=== PATIENT | female | born 1955 | race Hispanic/Latino ===

== ENCOUNTER 2018-07-25 15:39 | Emergency (ER) | payer SELFPAY ==
[2018-07-25] MEDS ORDERED: SODIUM CHLORIDE 0.9% 1000ML 1,000 ML IV ONE (16:14)
[2018-07-25] MEDS ORDERED: INSULIN HUMULIN R 100 UNIT/ML 3ML ONE (16:15)
[2018-07-25 16:28] LABS: BASOPHILS % (AUTO) 0.3 % (0.0-5.0); EOSINOPHILS % (AUTO) 1.1 % (0.0-8.0); HEMATOCRIT 37.2 % (36-48); LYMPHOCYTES % (AUTO) 24.7 % (21.0-51.0); MEAN CORPUSCULAR HEMOGLOBIN 29.7 pg (27.0-33.0); MEAN CORPUSCULAR HGB CONC 34.7 g/dL (32.0-36.0); MEAN CORPUSCULAR VOLUME 85.6 fL (79-99); MONOCYTES % (AUTO) 6.8 % (3.0-13.0); NEUTROPHILS % (AUTO) 67.1 % (40.0-77.0); PLATELET COUNT (AUTO) 395 K/uL (130-400); RED BLOOD CELL COUNT(AUTO) 4.35 MIL/uL (4.00-5.50); RED CELL DISTRIBUTION WIDTH 12.2 % (11.0-15.5); WHITE BLOOD COUNT (AUTO) 5.2 K/uL (4.8-10.8)
[2018-07-25 16:39] LABS: INR 0.91 (0.85-1.15); PARTIAL THROMBOPLASTIN TIME 27.8 SEC (26.3-35.5); PROTHROMBIN TIME 9.6 SEC (9.6-11.6)
[2018-07-25 16:50] LABS: ALBUMIN 3.3 g/dL (3.5-5.0); BILIRUBIN,TOTAL 0.3 mg/dL (0.2-1.0); CREATININE 0.7 mg/dL (0.5-1.5); TOTAL PROTEIN, SERUM 8.1 g/dL (6.0-8.3)
[2018-07-25 17:11] LABS: B-TYPE NATRIURETIC PEPTIDE 22 pg/mL (0-100)
[2018-07-25 17:15] LABS: APPEARANCE,URINE Clear (CLEAR); BILIRUBIN,URINE Negative (NEGATIVE); COLOR,URINE Yellow (YELLOW); GLUCOSE, URINE (UA) >=1000 mg/dL (NEGATIVE); KETONES,URINE 15 mg/dL (NEGATIVE); LEUKOCYTE ESTERASE ,URINE Negative (NEGATIVE); NITRATE,URINE Negative (NEGATIVE); OCCULT BLOOD,URINE Negative (NEGATIVE); PH,URINE 5.5 (5.0-8.0); PROTEIN,URINE Negative (NEGATIVE); UROBILINOGEN,URINE 0.2 mg/dL (0.2-1.0)
== END 2018-07-25 18:14 | disposition home or self-care (01) ==
LOC: EDH 15:39
DX: E11.65 Type 2 diabetes mellitus with hyperglycemia (principal); R53.1 Weakness; Z79.4 Long term (current) use of insulin
CPT/HCPCS: 36415; 71045; 80053; 81003; 82550; 82948 ×2; 83874; 83880; 84484; 85025; 85610; 85730; 93005; 96361; 96374; 99284; J1815; J7030

== ENCOUNTER 2020-04-11 23:50 | Emergency (ER) | payer MEDICAID ==
[2020-04-12 00:21] LABS: BILIRUBIN,URINE Negative (NEGATIVE); COLOR,URINE Yellow (YELLOW); GLUCOSE, URINE (UA) Negative (NEGATIVE); KETONES,URINE Negative (NEGATIVE); LEUKOCYTE ESTERASE ,URINE Moderate (NEGATIVE); NITRATE,URINE Negative (NEGATIVE); OCCULT BLOOD,URINE Moderate (NEGATIVE); PH,URINE 7.5 (5.0-8.0); PROTEIN,URINE 300 mg/dL (NEGATIVE)
[2020-04-12 00:24] LABS: APPEARANCE,URINE CLEAR (CLEAR)
[2020-04-12 00:24] LABS: BASOPHILS % (AUTO) 0.4 % (0.0-5.0); EOSINOPHILS % (AUTO) 2.8 % (0.0-8.0); LYMPHOCYTES % (AUTO) 32.2 % (21.0-51.0); MEAN CORPUSCULAR HEMOGLOBIN 30.2 pg (27.0-33.0); MEAN CORPUSCULAR HGB CONC 33.8 g/dL (32.0-36.0); MEAN CORPUSCULAR VOLUME 89.2 fL (79-99); MONOCYTES % (AUTO) 7.5 % (3.0-13.0); NEUTROPHILS % (AUTO) 56.8 % (40.0-77.0); PLATELET COUNT (AUTO) 334 K/uL (130-400); RED BLOOD CELL COUNT(AUTO) 3.25 MIL/uL (4.00-5.50); RED CELL DISTRIBUTION WIDTH 12.6 % (11.0-15.5); WHITE BLOOD COUNT (AUTO) 7.2 K/uL (4.8-10.8)
[2020-04-12 00:31] LABS: CREATININE 1.2 mg/dL (0.5-1.5); POTASSIUM 4.4 mmol/L (3.5-5.1)
[2020-04-12 00:33] LABS: BACTERIA,URINE Moderate /HPF (None Seen)
[2020-04-12 00:34] LABS: RENAL EPITHELIAL CELLS,URINE Few /HPF (None Seen)
== END 2020-04-12 01:07 | disposition home or self-care (01) ==
LOC: EDH 23:50
DX: T83.098A Other mechanical complication of other urinary catheter, initial encounter (principal); E11.9 Type 2 diabetes mellitus without complications; Z98.890 Other specified postprocedural states; Y73.8 Miscellaneous gastroenterology and urology devices associated with adverse incidents, not elsewhere classified; Y92.89 Other specified places as the place of occurrence of the external cause
CPT/HCPCS: 36415; 80048; 81001; 85025; 87077; 87088; 87186

== ENCOUNTER 2021-08-09 22:18 | Observation (INO) | payer OTHER, MEDICARE ==
[~2021-08-09] VITALS: Ht 154.9 cm; Wt 57.6 kg
[2021-08-09] MEDS ORDERED: HYDROCODONE/ACETAMINOPHEN 10/325 MG TAB PO ONE (22:30)
[2021-08-09 22:47] LABS: BASOPHILS % (AUTO) 0.5 % (0.0-5.0); EOSINOPHILS % (AUTO) 2.6 % (0.0-8.0); HEMATOCRIT 27.6 % (36-48); LYMPHOCYTES % (AUTO) 22.1 % (21.0-51.0); MEAN CORPUSCULAR HEMOGLOBIN 29.4 pg (27.0-33.0); MEAN CORPUSCULAR HGB CONC 32.6 g/dL (32.0-36.0); MEAN CORPUSCULAR VOLUME 90.2 fL (79-99); MONOCYTES % (AUTO) 8.7 % (3.0-13.0); NEUTROPHILS % (AUTO) 65.8 % (40.0-77.0); PLATELET COUNT (AUTO) 303 K/uL (130-400); RED BLOOD CELL COUNT(AUTO) 3.06 MIL/uL (4.00-5.50); RED CELL DISTRIBUTION WIDTH 12.5 % (11.0-15.5); WHITE BLOOD COUNT (AUTO) 7.3 K/uL (4.8-10.8)
[2021-08-09] MEDS ORDERED: HYDROCODONE/ACETAMINOPHEN 10/325 MG TAB ONE (22:52)
[2021-08-09 23:02] LABS: CREATININE 1.4 mg/dL (0.5-1.5); POTASSIUM 3.7 mmol/L (3.5-5.1)
[2021-08-09 23:07] LABS: ALBUMIN 2.8 g/dL (3.5-5.0); BILIRUBIN,TOTAL 0.1 mg/dL (0.2-1.0); TOTAL PROTEIN, SERUM 7.6 g/dL (6.0-8.3)
[2021-08-09 23:15] LABS: B-TYPE NATRIURETIC PEPTIDE 45 pg/mL (0-100)
[2021-08-10] MEDS ORDERED: IOHEXOL 350 MG/ML 100ML INFUS..BTL IV ONE (00:16)
[2021-08-10] MEDS ORDERED: KETOROLAC 30MG VIAL (30MG/ML) IV ONE (02:30)
[2021-08-10] MEDS ORDERED: CLINDAMYCIN IVPB 900MG/50ML 50 ML IV ONE (02:30)
[2021-08-10] MEDS ORDERED: ACETAMINOPHEN 325 MG TAB PO PRN (03:30)
[2021-08-10] MEDS ORDERED: MORPHINE 2 MG SYG IV PRN (03:30)
[2021-08-10] MEDS ORDERED: VANCOMYCIN PROTOCOL PER PHARMACY IV PRN (03:30)
[2021-08-10] MEDS ORDERED: ASPIRIN 81MG CHEW TAB PO ONE (03:30)
[2021-08-10] MEDS ORDERED: MORPHINE 4 MG SYG IV PRN (03:30)
[2021-08-10] MEDS ORDERED: NITROGLYCERIN 0.4 MG SL TAB SL PRN (03:30)
[2021-08-10] MEDS ORDERED: VANCOMYCIN 1G/250ML KIT 250 ML IV ONE (04:00)
[2021-08-10] MEDS: INSULIN HUMULIN R 100 UNIT/ML 3ML SQ SCH ×4 (07:30→20:18)
[2021-08-10] MEDS: ZOSYN 3.375GM+NS 50ML 50 ML IV SCH ×2 (07:59→12:40)
[2021-08-10] MEDS: ASPIRIN 81MG CHEW TAB PO SCH (08:41)
[2021-08-10] MEDS: HEPARIN 5,000 UNIT VIAL SQ SCH ×3 (08:42→20:19)
[2021-08-10] MEDS ORDERED: FAMOTIDINE 20MG TAB PO SCH (09:00)
[2021-08-10] MEDS ORDERED: 0.9%NACL 50ML 50 ML IV ONE (12:33)
[2021-08-10] MEDS ORDERED: PHARMACY COMMUNICATION MISC SCH (16:00)
[2021-08-10] MEDS ORDERED: INVANZ 1GM+NS 50ML IVPB 50 ML IV SCH (17:00)
[2021-08-10 18:50] VITALS: BP 160/83
[2021-08-10 20:30] VITALS: BP 171/83
[2021-08-10] MEDS ORDERED: VANCOMYCIN 1G/250ML KIT 250 ML IV SCH (21:00)
[2021-08-10] MEDS ORDERED: INSULIN GLARGINE 100 UNITS/ML 10 ML VIAL SQ SCH (21:00)
[2021-08-10 21:40] VITALS: BP 157/59
[2021-08-10] MEDS ORDERED: AEC81 PO (22:51)
[2021-08-10] MEDS ORDERED: TICA90TA PO (22:51)
[2021-08-10] MEDS ORDERED: GEMF600T89 PO (22:51)
[2021-08-10] MEDS ORDERED: CARV3.1262 PO (22:51)
[2021-08-10] MEDS ORDERED: LOSA25TA41 PO (22:51)
[2021-08-10] MEDS ORDERED: PRAV20TA4 PO (22:51)
[2021-08-10] MEDS ORDERED: METF-446 PO (23:36)
[2021-08-10] MEDS ORDERED: INSU100I35 SQ (23:36)
[2021-08-10 23:38] VITALS: BP 161/83
[2021-08-11 04:00] VITALS: BP 146/70
[2021-08-11 05:14] LABS: BASOPHILS % (AUTO) 0.4 % (0.0-5.0); EOSINOPHILS % (AUTO) 1.3 % (0.0-8.0); HEMATOCRIT 25.5 % (36-48); LYMPHOCYTES % (AUTO) 12.7 % (21.0-51.0); MEAN CORPUSCULAR HEMOGLOBIN 29.2 pg (27.0-33.0); MEAN CORPUSCULAR HGB CONC 32.9 g/dL (32.0-36.0); MEAN CORPUSCULAR VOLUME 88.5 fL (79-99); MONOCYTES % (AUTO) 5.5 % (3.0-13.0); NEUTROPHILS % (AUTO) 79.8 % (40.0-77.0); PLATELET COUNT (AUTO) 291 K/uL (130-400); RED BLOOD CELL COUNT(AUTO) 2.88 MIL/uL (4.00-5.50); WHITE BLOOD COUNT (AUTO) 6.8 K/uL (4.8-10.8)
[2021-08-11 05:29] LABS: CREATININE 1.2 mg/dL (0.5-1.5); MAGNESIUM 1.9 mg/dL (1.80-2.40); PHOSPHORUS 4.3 mg/dL (2.5-4.9); POTASSIUM 3.9 mmol/L (3.5-5.1)
[2021-08-11] MEDS: INSULIN HUMULIN R 100 UNIT/ML 3ML SQ SCH ×2 (05:58→11:30)
[2021-08-11 08:00] VITALS: BP 155/88
[2021-08-11] MEDS ORDERED: CARVEDILOL 3.125 MG TABLET PO SCH (09:15)
[2021-08-11] MEDS ORDERED: GEMFIBROZIL 600 MG TABLET PO SCH (09:15)
[2021-08-11] MEDS ORDERED: ATORVASTATIN 10 MG TABLET PO SCH (09:15)
[2021-08-11] MEDS ORDERED: LOSARTAN 25 MG TABLET PO SCH (09:15)
[2021-08-11] MEDS ORDERED: TICAGRELOR 90 MG TABLET PO SCH (09:15)
[2021-08-11] MEDS ORDERED: PANTOPRAZOLE 40 MG TAB DR PO SCH (09:30)
[2021-08-11] MEDS: ASPIRIN 81MG CHEW TAB PO SCH (10:06)
[2021-08-11] MEDS: HEPARIN 5,000 UNIT VIAL SQ SCH (10:13)
[2021-08-11 12:00] VITALS: BP 144/72
[2021-08-11 16:00] VITALS: BP 150/70
== END 2021-08-11 16:00 | disposition home or self-care (01) ==
LOC: EDH 22:18 → INTOOBSV 08-10 03:02 → EDHIP 08-10 03:02 → 4DH 08-10 18:50
PROVIDERS: ADMIT Internal Medicine; ATTEND Internal Medicine
DX: L03.113 Cellulitis of right upper limb (principal); Z20.822 Contact with and (suspected) exposure to COVID-19; N39.0 Urinary tract infection, site not specified; D68.59 Other primary thrombophilia; I80.8 Phlebitis and thrombophlebitis of other sites; I12.9 Hypertensive chronic kidney disease with stage 1 through stage 4 chronic kidney disease, or unspecified chronic kidney disease; E11.22 Type 2 diabetes mellitus with diabetic chronic kidney disease; N18.9 Chronic kidney disease, unspecified; D63.1 Anemia in chronic kidney disease; R07.89 Other chest pain; E11.65 Type 2 diabetes mellitus with hyperglycemia; E78.5 Hyperlipidemia, unspecified; Z83.3 Family history of diabetes mellitus; Z87.440 Personal history of urinary (tract) infections; Z79.01 Long term (current) use of anticoagulants; Z79.899 Other long term (current) drug therapy
CPT/HCPCS: 36415 ×3; 71045; 71275; 80048; 80053; 82948 ×7; 83036; 83735; 83880; 84100; 84145; 84484 ×4; 85025 ×2; 85378; 85651; 86140; 87040 ×2; 87635; 93971; 96365; 96366; 96367; 96372 ×2; 96375; 99285; C9803; G0378; J1335; J1644 ×4; J1815; J1885; J2543 ×2; J3370 ×2; J3490; Q9967

== ENCOUNTER 2023-03-09 08:58 | Emergency (ER) | payer OTHER, MEDICARE ==
[~2023-03-09] VITALS: Ht 149.9 cm; Wt 57.6 kg
[~2023-03-09 08:58] MED LIST: AEC81 PO; CARV3.1262 PO; GEMF600T89 PO; INSU100I35 SQ; LOSA25TA41 PO; METF-446 PO; PRAV20TA4 PO; TICA90TA PO
[2023-03-09 09:34] LABS: BASOPHILS # (AUTO) 0.03 K/uL (0.00-0.20); BASOPHILS % (AUTO) 0.3 % (0.0-5.0); EOSINOPHILS # (AUTO) 0.11 K/uL (0.00-0.70); EOSINOPHILS % (AUTO) 1.2 % (0.0-8.0); HEMATOCRIT 32.3 % (36-48); IMMATURE GRANULOCYTE ABSOLUTE 0.04 K/uL (0-1); LYMPHOCYTES # (AUTO) 1.6 K/uL (1.0-4.8); LYMPHOCYTES % (AUTO) 16.9 % (21.0-51.0); MEAN CORPUSCULAR HEMOGLOBIN 29.6 pg (27.0-33.0); MEAN CORPUSCULAR HGB CONC 33.4 g/dL (32.0-36.0); MEAN CORPUSCULAR VOLUME 88.5 fL (79-99); MONOCYTES # (AUTO) 0.9 K/uL (0.1-1.0); MONOCYTES % (AUTO) 9.1 % (3.0-13.0); NEUTROPHILS # (AUTO) 6.8 K/uL (1.8-7.7); NEUTROPHILS % (AUTO) 72.1 % (40.0-77.0); PLATELET COUNT (AUTO) 258 K/uL (130-400); RED BLOOD CELL COUNT(AUTO) 3.65 MIL/uL (4.00-5.50); RED CELL DISTRIBUTION WIDTH 12.6 % (11.0-15.5); WHITE BLOOD COUNT (AUTO) 9.4 K/uL (4.8-10.8)
[2023-03-09 09:44] LABS: CREATININE 1.5 mg/dL (0.5-1.5); POTASSIUM 3.9 mmol/L (3.5-5.1)
[2023-03-09 09:49] LABS: ALBUMIN 3.2 g/dL (3.5-5.0); BILIRUBIN,TOTAL 0.5 mg/dL (0.2-1.0); TOTAL PROTEIN, SERUM 8.5 g/dL (6.0-8.3)
[2023-03-09 10:00] LABS: APPEARANCE,URINE TURBID (CLEAR); BILIRUBIN,URINE NEGATIVE (NEGATIVE); COLOR,URINE YELLOW (YELLOW); GLUCOSE, URINE (UA) >=1000 mg/dL (NEGATIVE); KETONES,URINE 5 mg/dL (NEGATIVE); LEUKOCYTE ESTERASE ,URINE MODERATE Leu/uL (NEGATIVE); NITRATE,URINE NEGATIVE (NEGATIVE); OCCULT BLOOD,URINE SMALL (NEGATIVE); PROTEIN,URINE 100 mg/dL (NEGATIVE); UROBILINOGEN,URINE 0.2 mg/dL (0.2-1.0)
[2023-03-09 10:07] LABS: SARS-CoV-2, RNA, NAAT NEGATIVE SARS CoV-2 (NEGATIVE)
[2023-03-09 10:11] LABS: INFLUENZA TYPE A Negative For Type A (NEGATIVE); INFLUENZA TYPE B Negative For Type B (NEGATIVE)
[2023-03-09 10:19] LABS: ADD UA MICROSCOPIC YES
[2023-03-09] MEDS ORDERED: CEFTRIAXONE 1G VIAL IVPB ONE (10:30)
[2023-03-09] MEDS ORDERED: LEVOFLOXACIN 500 MG/D5W 100 ML 100 ML IV ONE (10:30)
[2023-03-09] MEDS ORDERED: 0.9% NACL 500ML IV.SOLN 500 ML IV ONE (10:30)
[2023-03-09] MEDS ORDERED: ONDA-104 PO (10:31)
[2023-03-09] MEDS ORDERED: NITR100C PO (10:31)
[2023-03-09 10:33] LABS: BACTERIA,URINE Many /HPF (None Seen); RBC,URINE 0-1 /HPF (0-1); SQUAMOUS EPITHELIAL CELL,UR Rare /HPF (0-2); WBC,URINE >100 /HPF (0-1)
[2023-03-09] MEDS ORDERED: ONDANSETRON 4MG INJ IVP ONE (11:00)
[2023-03-09 13:00] VITALS: BP 142/61; PULSE 85; RESP 17; O2SAT 98
[2023-03-10] MEDS ORDERED: LEVOFLOXACIN 250 MG/D5W 50ML 50 ML IVPB SCH (11:00)
== END 2023-03-09 13:06 | disposition home or self-care (01) ==
LOC: EDH 08:58
DX: N39.0 Urinary tract infection, site not specified (principal); E86.0 Dehydration; R11.0 Nausea; I10 Essential (primary) hypertension; E11.9 Type 2 diabetes mellitus without complications; E78.00 Pure hypercholesterolemia, unspecified; Z20.822 Contact with and (suspected) exposure to COVID-19; Z79.82 Long term (current) use of aspirin; Z79.84 Long term (current) use of oral hypoglycemic drugs; Z79.899 Other long term (current) drug therapy
CPT/HCPCS: 99284; 96365; 87635; 96375; 84484; 80053; 85025; 87077; 87088; 87186; 87804 ×2; 81001; 36415; 93005; C9803; J1956; J2405

== ENCOUNTER 2023-03-12 13:25 | Emergency (ER) | payer OTHER, MEDICARE ==
[~2023-03-12] VITALS: Ht 160 cm; Wt 57.6 kg
[~2023-03-12 13:25] MED LIST changes: +NITR100C PO; +ONDA-104 PO
[2023-03-12 14:30] VITALS: BP 133/67; PULSE 83; RESP 16; O2SAT 99
[2023-03-12] MEDS ORDERED: ORPHENADRINE CITRATE 30 MG/ML ML IM STA (15:03)
[2023-03-12] MEDS ORDERED: TRIAMCINOLONE ACETONIDE 40 MG/ML 1ML VIAL IM STA (15:03)
[2023-03-12] MEDS ORDERED: METH-662 PO (15:55)
== END 2023-03-12 16:10 | disposition home or self-care (01) ==
LOC: EDH 13:25
DX: S46.812A Strain of other muscles, fascia and tendons at shoulder and upper arm level, left arm, initial encounter (principal); I10 Essential (primary) hypertension; E11.59 Type 2 diabetes mellitus with other circulatory complications; E78.00 Pure hypercholesterolemia, unspecified; Z79.82 Long term (current) use of aspirin; Z79.84 Long term (current) use of oral hypoglycemic drugs; Z79.899 Other long term (current) drug therapy; Z87.440 Personal history of urinary (tract) infections; Z98.890 Other specified postprocedural states; Z88.1 Allergy status to other antibiotic agents; X58.XXXA Exposure to other specified factors, initial encounter; Y93.89 Activity, other specified; Y92.89 Other specified places as the place of occurrence of the external cause; Y99.8 Other external cause status
CPT/HCPCS: 99284; 73030; 96372 ×2; 93005; J3301; J2360

== ENCOUNTER 2024-03-16 14:16 | Emergency (ER) | payer OTHER, MEDICARE ==
[~2024-03-16] VITALS: Ht 165.1 cm; Wt 72.6 kg
[~2024-03-16 14:16] MED LIST changes: +METH-662 PO; +ONDA-243 PO
[2024-03-16 14:45] LABS: BASOPHILS # (AUTO) 0.05 K/uL (0.00-0.20); BASOPHILS % (AUTO) 0.4 % (0.0-5.0); EOSINOPHILS % (AUTO) 2.6 % (0.0-8.0); HEMATOCRIT 30.7 % (36-48); IMMATURE GRANULOCYTE ABSOLUTE 0.05 K/uL (0-1); LYMPHOCYTES # (AUTO) 1.4 K/uL (1.0-4.8); LYMPHOCYTES % (AUTO) 11.9 % (21.0-51.0); MEAN CORPUSCULAR HGB CONC 32.2 g/dL (32.0-36.0); MONOCYTES # (AUTO) 0.9 K/uL (0.1-1.0); MONOCYTES % (AUTO) 7.6 % (3.0-13.0); NEUTROPHILS % (AUTO) 77.1 % (40.0-77.0); PLATELET COUNT (AUTO) 358 K/uL (130-400); RED CELL DISTRIBUTION WIDTH 13.3 % (11.0-15.5); WHITE BLOOD COUNT (AUTO) 11.6 K/uL (4.8-10.8)
[2024-03-16 14:52] LABS: APPEARANCE,URINE CLOUDY (CLEAR); BILIRUBIN,URINE NEGATIVE (NEGATIVE); COLOR,URINE LIGHT-YELLOW (YELLOW); GLUCOSE, URINE (UA) >=1000 mg/dL (NEGATIVE); KETONES,URINE NEGATIVE (NEGATIVE); LEUKOCYTE ESTERASE ,URINE 250 Leu/uL (NEGATIVE); NITRATE,URINE NEGATIVE (NEGATIVE); OCCULT BLOOD,URINE NEGATIVE (NEGATIVE); PROTEIN,URINE 50 mg/dL (NEGATIVE); UROBILINOGEN,URINE 0.2 mg/dL (0.2-1.0)
[2024-03-16 14:54] LABS: ADD UA MICROSCOPIC YES
[2024-03-16 14:56] LABS: BACTERIA,URINE FEW /HPF (None Seen); MUCUS,URINE RARE LPF (None Seen); RBC,URINE 0-1 /HPF (0-1); SQUAMOUS EPITHELIAL CELL,UR RARE /HPF (0-2); WBC CLUMP FEW /HPF (0-1); WBC,URINE 26-50 /HPF (0-1)
[2024-03-16 15:05] LABS: CREATININE 1.5 mg/dL (0.5-1.0); POTASSIUM 4.8 mmol/L (3.5-5.1)
[2024-03-16 15:43] LABS: RAPID GROUP A STREP negative (NEGATIVE)
[2024-03-16 15:52] LABS: INFLUENZA TYPE A Negative For Type A (NEGATIVE); INFLUENZA TYPE B Negative For Type B (NEGATIVE)
[2024-03-16 16:20] LABS: COVID19 (SARS ANTIGEN RAPID) PRESUMPTIVE NEGATIVE (NEGATIVE)
[2024-03-16 16:54] VITALS: BP 132/79; PULSE 87; RESP 16; TEMP 97.9; O2SAT 98
== END 2024-03-16 17:04 | disposition home or self-care (01) ==
LOC: EDH 14:16
DX: E11.649 Type 2 diabetes mellitus with hypoglycemia without coma (principal); Z20.822 Contact with and (suspected) exposure to COVID-19; E78.00 Pure hypercholesterolemia, unspecified; I10 Essential (primary) hypertension; Z79.82 Long term (current) use of aspirin; Z79.899 Other long term (current) drug therapy; Z79.4 Long term (current) use of insulin; Z79.84 Long term (current) use of oral hypoglycemic drugs; Z98.890 Other specified postprocedural states; Z95.5 Presence of coronary angioplasty implant and graft
CPT/HCPCS: 36415; 80048; 81001; 82948; 85025; 87086; 87186; 87426; 87804; 87880

== ENCOUNTER 2024-08-10 10:33 | Emergency (ER) | payer OTHER, MEDICARE ==
[~2024-08-10] VITALS: Ht 154.9 cm; Wt 55.3 kg
--- NOTE | 2024-08-10 11:09 | NUR ---
DRESSING APPLIED TO LT WRIST, PT TOLERATED WELL
[2024-08-10 11:12] VITALS: BP 128/78; PULSE 78; RESP 18; TEMP 98.4; O2SAT 99
[2024-08-10] MEDS ORDERED: SULF1TAB42 PO (11:15)
--- NOTE | 2024-08-10 11:18 | ERN ---
General Chief Complaint: Laceration/Avulsion Stated Complaint: LACERATION TO WRIST Time Seen by MD: 10:35 Time Seen by Midlevel: 10:35 Source: patient History of Present Illness Initial Comments 69-year-old female with a past medical history of type 2 diabetes, hypertension, and coronary artery disease presenting to the emergency department with a laceration to the left wrist that was sustained just prior to arrival. The patient states she accidentally cut herself with a plastic pipe. Denies any other injury. There is small amounts of bleeding to the left wrist. Allergies: Coded Allergies: No Known Drug Allergies (Unverified Allergy, Unknown, 06/30/23) Home Meds Active Scripts Sulfamethoxazole/Trimethoprim (Bactrim Ds Tablet) 800 Mg-160 Mg Tablet, 1 TAB PO BID for 5 Days, #10 TAB 0 Refills Prov:LOWELL JHAVERI 08/10/24 Ondansetron (Ondansetron Odt) 4 Mg Tab.rapdis, 4 MG PO Q6HPRN PRN for nausea, #15 TAB 0 Refills Prov:MARIANNE ANGLIN NP 06/30/23 Nitrofurantoin Macrocrystal (Nitrofurantoin) 100 Mg Capsule, 100 MG PO BID for 7 Days, #14 CAP 0 Refills Prov:MARIANNE ANGLIN NP 06/30/23 Methocarbamol (Robaxin) 750 Mg Tab, 750 MG PO BID for 5 Days, #10 TAB Prov:SYDNEY ARGUELLO MD 03/12/23 Nitrofurantoin Macrocrystal (Nitrofurantoin) 100 Mg Capsule, 100 MG PO BID for 7 Days, #14 CAP 0 Refills Prov:MARIANNE ANGLIN NP 03/09/23 Ondansetron HCl (Ondansetron HCl) 4 Mg Tablet, 4 MG PO q8 hours, #15 TAB 0 Refills Prov:MARIANNE ANGLIN NP 03/09/23 Reported Medications Insulin NPH Hum/Reg Insulin Hm (Novolin 70-30 Flexpen) 100 Unit/1 Ml Insuln.pen, 25 UNIT SQ BIDMEALS, SYRINGE 08/10/21 Metformin HCl (Metformin HCl) 1,000 Mg Tablet, 1000 MG PO BIDMEALS, TAB 08/10/21 Aspirin (ASPIRIN 81 MG ECTAB) 81 Mg Ectab, 81 MG PO DAILY, TAB.EC 08/10/21 Losartan Potassium (Losartan Potassium) 25 Mg Tablet, 25 MG PO DAILY, TAB 08/10/21 Carvedilol (Coreg) 3.125 Mg Tablet, 3.125 MG PO BID, TAB 08/10/21 Pravastatin Sodium (Pravastatin Sodium) 20 Mg Tablet, 20 MG PO DAILY, TAB 08/10/21 Gemfibrozil (Gemfibrozil) 600 Mg Tablet, 600 MG PO BID, TAB 08/10/21 Ticagrelor (Brilinta) 90 Mg Tablet, 90 MG PO BID, TAB 08/10/21 Past Medical History Past Medical History: Dementia, High Cholesterol, Hypotension Medical History Other: Chronic urinary tract infection Past Surgical History: Other Surgical History Other: LEFT CARTOID STENT, LEFT LEG STENTS X2 Social History Social History: Negative ROS Dictation CONSTITUTIONAL: Negative except for HPI HEAD/FACE: Negative except for HPI EENT: Negative except for HPI RESPIRATORY: Negative except for HPI GASTROINTESTINAL/ABDOMINAL: Negative except for HPI GENITOURINARY: Negative except for HPI MUSCULOSKELETAL: Negative except for HPI INTEGUMENTARY: Negative except for HPI NEUROLOGICAL/PSYCH: Negative except for HPI HEMATOLOGIC/LYMPHATIC: Negative except for HPI All Systems Negative, Except as noted above. 13 point review of systems assessed and all negative except for above. Physical Exam Physical Exam Dictation PHYSICAL EXAM: GENERAL: alert,, awake oriented x 3 HEENT: EOMI, Sclera non icteric, moist mucosa NECK: Supple, no JVD, trachea midline LUNGS: Clear breath sounds bilaterally. No wheezes HEART: Regular rate and rhythm. Normal S1 and S2, without murmurs ABD: Abdomen soft, nontender. Bowel sounds present EXT: No clubbing or cyanosis, NEURO: Alert and oriented to person, follows commands SKIN: Superficial linear laceration to the left lateral wrist, laceration measures approximately 3 cm, no active bleeding, no foreign body visualized MDM MDM: 69-year-old female with a past medical history of type 2 diabetes, hypertension, and coronary artery disease presenting to the emergency department with a laceration to the left wrist that was sustained just prior to arrival. The patient states she accidentally cut herself with a plastic pipe. Denies any other injury. There is small amounts of bleeding to the left wrist. On physic al examination the patient has a linear laceration to the left lateral wrist with no active bleeding. There was no foreign body visualized. The laceration measures approximately 3 cm. The wound was copiously irrigated. The laceration was successfully repaired with four simple interrupted Ethilon sutures. No complications. Wound care precautions were given to the patient. Return precautions discussed. Patient is stable for discharge patient placed on antibiotics prophylactically given her history of uncontrolled diabetes. Tetanus vaccination given in the ER. Differential diagnosis: Laceration, abrasion, contusion There are no social concerns with this patient. Prescription drug management Prescriptions will include: Medical management and examination interpretation discussions were had by me with other qualified healthcare professionals as indicated for the patient's care. ED Course Orders Procedure Category Date Status Time Lidocaine Hcl 1% 20ml PHA 08/10/24 Complete Vial (Lidocaine Hc 11:00 Lidocaine Hcl 1% 20ml PHA 08/10/24 Complete Vial (Lidocaine Hc 10:42 Tetanus,Diphtheria PHA 08/10/24 Complete Tox [Adult] (Diphther 11:30 Current Medications Medications (Trade) Dose Ordered Sig/Hermila Route PRN Reason Start Time Stop Time Status Last Admin Dose Admin Lidocaine HCl (Lidocaine HCl 1% 20ml Vial) ONCE INJ 08/10/24 11:00 08/10/24 11:36 DC 08/10/24 11:33 Lidocaine HCl (Lidocaine HCl 1% 20ml Vial) 20 ml STK-MED ONCE .ROUTE 08/10/24 10:42 08/10/24 10:42 DC Tetanus/ Diphtheria Toxoids Adsorbed (DiphthERIA-teTANUS TOXOID [ADULT]/ DECAVAC) 0.5 ml ONCE ONCE IM 08/10/24 11:30 08/10/24 11:31 DC 08/10/24 11:32 Vital Signs Date Time Temp Pulse Resp B/P (MAP) Pulse Ox O2 Delivery O2 Flow Rate FiO2 08/10/24 11:12 98.4 78 18 128/78 99 Room Air* 0 21 08/10/24 10:48 99.0 20 99 Room Air 0 Procedure Dictation Procedure Name: Laceration Repair Indication: Reduce risk of infection Location: Left lateral wrist, linear laceration measuring approximately 3 cm, Pre-Procedure Diagnosis: Laceration Post-Procedure Diagnosis: Repaired Laceration Informed consent was obtained before procedure started. PROCEDURE: The appropriate timeout was taken. The area was prepped and draped in the usual sterile fashion. Local anesthesia was achieved using 2cc of Lidocaine 1% without epinephrine. The wound was copiously irrigated. 3 4-0 Ethilon simple interrupted sutures were placed. Estimated blood loss was less than 0.5 mL. A dressing was applied to the area and anticipatory guidance, as well as standard post-procedure care, was explained. Return precautions are given. The patient tolerated the procedure well without complications. Follow-up visit set for suture removal and evaluation of the laceration. DX & DISP Disposition: Discharge Departure Impression: Primary Impression: Laceration of left wrist without complication Condition: Stable Scripts Sulfamethoxazole/Trimethoprim (Bactrim Ds Tablet) 800 Mg-160 Mg Tablet 1 TAB PO BID for 5 Days, #10 TAB 0 Refills Prov: LOWELL JHAVERI 08/10/24 Additional Instructions: Your laceration was successfully repaired with four sutures. The These will need to be removed in 7-10 days. You may follow up with your primary care doctor or return to the ER for suture removal. If you notice any signs of infections like an increase in redness, swelling, fever, chills, or abnormal discharge from the site you may start the antibiotics. Return to the ER if you develop any new or worsening symptoms Referrals: THOMAS ANAND (PCP) Time of Disposition: 11:15 I have reviewed the case, and I agree with, Diagnosis and Plan I performed the substantive portion of the visit. I have reviewed and personally made and approve the management plan that is documented in the note by myself or the ANTOINE. I acknowledge for responsibility for the patient's management plan. LOWELL JHAVERI Aug 10, 2024 11:18 DINAH GERMAN DO Aug 10, 2024 18:50
[2024-08-10] MEDS: teTANUS/diphthERIA TOXOID [ADULT] 0.5 ML VIAL IM ONE (11:32)
[2024-08-10] MEDS: LIDOCAINE HCL 1% 20 ML VIAL ONE (11:33)
[2024-08-10] MEDS: LIDOCAINE HCL 1% 20 ML VIAL INJ SCH (11:33)
== END 2024-08-10 11:35 | disposition home or self-care (01) ==
LOC: EDH 10:33
DX: S61.512A Laceration without foreign body of left wrist, initial encounter (principal); E11.9 Type 2 diabetes mellitus without complications; E78.00 Pure hypercholesterolemia, unspecified; F03.90 Unspecified dementia, unspecified severity, without behavioral disturbance, psychotic disturbance, mood disturbance, and anxiety; I10 Essential (primary) hypertension; I25.10 Atherosclerotic heart disease of native coronary artery without angina pectoris; Z79.02 Long term (current) use of antithrombotics/antiplatelets; Z79.82 Long term (current) use of aspirin; Z79.899 Other long term (current) drug therapy; W26.8XXA Contact with other sharp object(s), not elsewhere classified, initial encounter; Y93.89 Activity, other specified; Y92.89 Other specified places as the place of occurrence of the external cause; Y99.8 Other external cause status
CPT/HCPCS: 12002; 90471; 90714; 99283